=== PATIENT | female | born 1990 | race Caucasian/White ===

== ENCOUNTER → 2017-09-15 | Outpatient (CLI) | payer BC | END | disposition home or self-care (01) | LOC: C.LABSPEC 13:08 | PROVIDERS: ATTEND Obstetrics & Gynecology | DX: Z34.81 Encounter for supervision of other normal pregnancy, first trimester (principal) ==

== ENCOUNTER → 2017-09-22 | Outpatient (CLI) | payer BC ==
[2017-09-22 13:07] LABS: BASO % 0.2 %; BASO ABS # 0.02 K/uL (0-0.2); EOS % 1.2 %; EOS ABS # 0.14 K/uL (0-0.5); HEMATOCRIT 38.1 % (37-47); HEMOGLOBIN 13.2 g/dL (12.0-16.0); IG# 0.04 K/uL (0.00-0.02); LYMPH % 10.8 %; LYMPH ABS # 1.26 K/uL (1.2-3.4); MEAN CELL VOLUME 89.2 fL (80-100); MEAN CORPUSCULAR HEMOGLOBIN 30.9 pg (25-34); MEAN CORPUSCULAR HGB CONC 34.6 g/dl (32-36); MEAN PLATELET VOLUME 11.4 fL (7.4-10.4); MONO % 8.1 %; MONO ABS # 0.95 K/uL (0.11-0.59); NEUT % 79.4 %; NEUT ABS # 9.27 K/uL (1.4-6.5); PLATELET COUNT 259 K/uL (130-400); RED CELL DISTRIBUTION WIDTH CV 13.1 % (11.5-14.5); RED CELL DISTRIBUTION WIDTH SD 42.1 fL (36.4-46.3); WHITE BLOOD COUNT 11.68 K/uL (4.8-10.8)
== END | disposition home or self-care (01) ==
LOC: C.LAB1850 09:41
PROVIDERS: ATTEND Obstetrics & Gynecology
DX: Z34.81 Encounter for supervision of other normal pregnancy, first trimester (principal)

== ENCOUNTER → 2017-09-22 | Outpatient (CLI) | payer BC | END | disposition home or self-care (01) | LOC: C.PAPS 13:26 | PROVIDERS: ATTEND Obstetrics & Gynecology | DX: Z34.81 Encounter for supervision of other normal pregnancy, first trimester (principal) ==

== ENCOUNTER 2018-05-04 23:33 | Inpatient (IN) ==
[2018-05-04] MEDS ORDERED: LACTATED RINGER'S 1,000 ML IV SCH (23:45)
[2018-05-04] MEDS ORDERED: LACTATED RINGER'S 1,000 ML IV PRN (23:53)
[2018-05-04] MEDS ORDERED: OXYTOCIN 30 UNITS/500 ML BAG IV PRN (23:53)
[2018-05-05 00:13] LABS: Hematocrit (blood only) 36.9 % (37-47); Hemoglobin 12.7 g/dL (12.0-16.0); Mean Corpuscular Volume 89.6 fL (80-100); Mean Platelet Volume 11.5 fL (7.4-10.4); Platelet Count 227 K/uL (130-400); RDW Coefficient of Variation 14.5 % (11.5-14.5); RDW Standard Deviation 47.2 fL (36.4-46.3); Red Blood Count 4.12 M/uL (4.2-5.4); White Blood Count 10.69 K/uL (4.8-10.8)
--- NOTE | 2018-05-05 00:13 | History & Physical Report ---
Date of Service May 05, 2018 Assessment & Plan (1) 39 weeks gestation of : 28yo @ 39 3 in spontaneous labor Admit to L&D, IV fluids, EFM/toco. OK for epidural when she desires. History of Present Illness Chief Complaint: labor Primary Care Provider: Jonathan Jj MD 28yo @ 39 3/7 presents to L&D with regular ctx every 3-4 minutes. Has felt like they have increased throughout the day today. No leaking of fluid, no vaginal bleeding. + movement. is complicated by maternal Igfjt-Qqcabkvkm-Lvhgz syndrome, had ablative procedure, and takes Metoprolol 25mg daily for this. She saw anesthesiology in consultation for this history 03/28/18. Additionally, patient has history of generalized anxiety disorder, takes paxil. Due to paxil use, had echo performed 01/25/19, this showed normal structure. There was a notation of mild constriction of the ductal arch. She was cleared for delivery at [facility]. She was to have a repeat echo performed 4-6w after the initial echo, but was unable to make this appointment due to snow. She is Rh negative, declined Rhogam due to FOB O negative - no documentation available as such. Allergies Allergy/AdvReac Type Severity Reaction Status Date / Time azithromycin [From Zithromax] Allergy Rash Verified 05/05/18 00:13 cefprozil [From Cefzil] Allergy Rash Verified 05/05/18 00:13 clindamycin Allergy Rash Verified 05/05/18 00:13 Iodinated Contrast- Oral and Allergy Rash Verified 05/05/18 00:13 IV Dye spironolactone Allergy Rash Verified 05/05/18 00:13 Sulfa (Sulfonamide Allergy Rash Verified 05/05/18 00:13 Antibiotics) Home Medications Home Medications Medication Instructions Recorded Confirmed Type 1 tab PO DAILY 05/05/18 05/05/18 History metoprolol tartrate 25 mg PO DAILY 05/05/18 05/05/18 History paroxetine HCl 10 mg PO DAILY 05/05/18 05/05/18 History Patient History Medical History ASCUS (atypical squamous cells of undetermined significance) on gynecologic Papanicolaou smear complicating , antepartum Endometriosis Generalized anxiety disorder Glytf-Zodxwlmbr-Dxnca (WPW) pattern Surgical History History of cardiac radiofrequency ablation Social History Preferred Language: Kazakh Communication Ability: Effective Beliefs That Will Affect Care: None marital status: Current Living Situation: Spouse Other Information That Helps Us Care for You: No Feels Safe at Home: Yes Smoking Status: Never smoker Hx Alcohol Use: No Hx Substance Use: No Physical Exam Vital Signs (Past 24 Hours): Last Vital Signs Temp 36.6 C 05/04/18 23:44 Pulse 66 05/04/18 23:46 Resp 20 05/04/18 23:44 BP 118/71 05/04/18 23:46 Physical Exam: Gen: AAO x3 NAD CV: RRR L: CTA Abd: soft, gravid Ext: no edema SVE: 6/100 per RN FHT Cat 1, [place] Q 3
[2018-05-05] MEDS ORDERED: BUPIVACAINE 0.25% 30 ML VIAL ONE (00:21)
[2018-05-05] MEDS ORDERED: fentaNYL 2MCG/ML ROPIV 1.25MG/ML 100 ML BAG EPI ONE (00:22)
[2018-05-05] MEDS ORDERED: ePHEDrine sulfate 50 MG/ML AMP ONE (00:22)
[2018-05-05] MEDS ORDERED: fentaNYL citrate 100 MCG/2 ML VIAL ONE (00:22)
[2018-05-05 00:37] LABS: Mean Corpuscular Hgb Conc 34.4 g/dL (32-36)
--- NOTE | 2018-05-05 01:32 | Anesthesiology Consultation ---
Date of Service May 05, 2018 Assessment & Plan Chart Review Chart Review: Acceptable Risk for Labor Epidural Consults Requested none ASA [id number] Proposed Anesthesia Anesthesia Type: CSE Risk / Benefits Reviewed With: PT / POA / Parent / Guardian, Accepts Plan and Informed Consent Obtained History Height/Weight Height: 5 ft 6 in Weight: 70.307 kg Allergies Allergy/AdvReac Type Severity Reaction Status Date / Time azithromycin [From Zithromax] Allergy Rash Verified 05/05/18 00:13 cefprozil [From Cefzil] Allergy Rash Verified 05/05/18 00:13 clindamycin Allergy Rash Verified 05/05/18 00:13 Iodinated Contrast- Oral and Allergy Rash Verified 05/05/18 00:13 IV Dye spironolactone Allergy Rash Verified 05/05/18 00:13 Sulfa (Sulfonamide Allergy Rash Verified 05/05/18 00:13 Antibiotics) Medications Home Medications Medication Instructions Recorded Confirmed Last Taken 1 tab PO DAILY 05/05/18 05/05/18 1 Day Ago ~05/04/18 metoprolol tartrate 25 mg PO DAILY 05/05/18 05/05/18 1 Day Ago ~05/04/18 paroxetine HCl 10 mg PO DAILY 05/05/18 05/05/18 1 Day Ago ~05/04/18 Active Medications Generic Name Dose Route Start Last Admin Trade Name Freq PRN Reason Stop Dose Admin Lactated Ringer's 1,000 mls @ 999 mls/hr 05/04/18 23:53 05/05/18 01:00 Lr IV 06/03/18 23:52 125 mls/hr .Q1H1M PRN Infusion (Pre-Anesthesia) Past Medical History Medical History ASCUS (atypical squamous cells of undetermined significance) on gynecologic Papanicolaou smear complicating , antepartum Endometriosis Generalized anxiety disorder Wlevl-Zeufvuhut-Yoyqp (WPW) pattern Past Surgical History Surgical History History of cardiac radiofrequency ablation Social History Smoking Status: Never smoker Do You Dip or Chew Tobacco: No Hx Alcohol Use: No Hx Substance Use: No Physical Exam Vital Signs Last Vital Signs Temp 36.6 C 05/04/18 23:44 Pulse 70 05/05/18 01:28 Resp 20 05/05/18 01:15 BP 116/77 05/05/18 01:28 Pulse Ox 100 05/05/18 01:28 Testing Laboratory Results 05/05/18 00:02
[2018-05-05] MEDS ORDERED: fentaNYL 2MCG/ML ROPIV 1.25MG/ML 100 ML BAG EPI PRN (01:35)
[2018-05-05] MEDS ORDERED: NALOXONE HCL 0.4 MG/1 ML VIAL/CARP IV PRN (01:35)
[2018-05-05] MEDS ORDERED: LACTATED RINGER'S 1,000 ML IV PRN (01:35)
[2018-05-05] MEDS ORDERED: ePHEDrine sulfate 50 MG/ML AMP IV PRN (01:35)
[2018-05-05] MEDS ORDERED: NALOXONE HCL 1 MG in SODIUM CHLORIDE 0.9% 1000ML 1,000 ML IV PRN (01:35)
[2018-05-05] MEDS ORDERED: NALBUPHINE HCL INJ 10 MG/ML AMP IV PRN (01:35)
[2018-05-05] MEDS ORDERED: DiphenhydrAMINE HCL 50 MG/ML VIAL IV PRN (01:35)
[2018-05-05] MEDS ORDERED: OXYTOCIN 30 UNITS/500 ML BAG IV PRN (02:11)
[2018-05-05] MEDS ORDERED: BISACODYL 10 MG SUPP PR PRN (02:11)
[2018-05-05] MEDS ORDERED: OXYCODONE/ACETAMINOPHEN 5mg/325mg TAB PO PRN (02:11)
[2018-05-05] MEDS ORDERED: SUPERCREAM 0.870% 15 GM JAR EXT PRN (02:11)
[2018-05-05] MEDS ORDERED: HYDROCORTISONE ACETATE 25 MG SUPP PR PRN (02:11)
[2018-05-05] MEDS ORDERED: DIPHTHERIA/TETANUS/PERTUSSIS 0.5 ML SYR/VIAL IM ONE (02:11)
[2018-05-05] MEDS ORDERED: BENZOCAINE 20% AER SPR 82.5 GM CAN EXT PRN (02:11)
[2018-05-05] MEDS ORDERED: ACETAMINOPHEN 325 MG TAB PO PRN (02:11)
--- NOTE | 2018-05-05 02:14 | Procedure Note ---
Vaginal Delivery Summary Date of Service May 05, 2018 Vaginal Delivery Summary Predelivery diagnoses: 28yo @ 39 05/05, spontaneous labor. Maternal WPW syndrome, s/p ablative procedure. Maternal paxil use, echo with narrow ductal arch. Rh negative status. Generalized anxiety disorder. Cervical dysplasia. Postdelivery diagnoses: same Procedure: spontaneous vaginal delivery Surgeon: Dr Spann Complications: none Findings: viable female , Apgars 8/9. Weight pending - please see nursery records. EBL: 300ml Procedure: Patient presented in spontaneous labor, recieved epidural, progressed to complete and had spontaneous rupture of membranes for clear fluid. She then began to push. She spontaneously vaginally delivered a viable female from the cephalic presentation. The head delivered in KAILYN position, followed by anterior shoulder, then posterior shoulder, then body. The baby was placed on mother's abdomen, and a spontaneous cry was heard. The cord was doubly clamped and cut, and cord blood was obtained. The placenta delivered spontaneously intact with a 3-vessel cord. Pitocin was given. The uterus/vagina were swept of clots and debris and the uterus became firm. The cervix, vagina, and perineum were inspected and no lacerations were noted. Excellent hemostasis was observed. Sponge/instrument counts were correct x 2 at the conclusion of delivery. The mother and baby recovered in the room in stable and good condition.
--- NOTE | 2018-05-05 06:18 | Anesthesia Procedure Note ---
Date of Service May 05, 2018 Anesthesia Post Epidural Note Vital Signs Vital Signs: Temp Pulse Resp BP Pulse Ox 37.0 C 66 18 111/66 98 05/05/18 05:35 05/05/18 05:35 05/05/18 05:35 05/05/18 05:35 05/05/18 01:48 Notes Mental Status: alert / awake / arousable and participated in evaluation Nausea / Vomiting: adequately controlled Pain: adequately controlled Airway Patency, RR, SpO2: stable & adequate BP & HR: stable & adequate Hydration State: stable & adequate Neuraxial Anesthesia: was administered and sensory block is resolving Anesthetic Complications: no major complications apparent and Pt Satisfied with anesthetic care Epidural: Removed without complications and With tip intact
[2018-05-05] MEDS ORDERED: PRENATAL VITAMIN 1 TAB PO SCH (09:00)
[2018-05-05] MEDS: DOCUSATE SODIUM 100 MG CAP PO SCH ×2 (09:05→21:04)
[2018-05-05] MEDS: PARoxetine HCl 20 MG TAB PO SCH (09:05)
[2018-05-05] MEDS: PRENATAL VITAMIN 1 TAB PO SCH (09:05)
[2018-05-05] MEDS: IBUPROFEN 600 MG TAB PO PRN ×2 (12:51→19:21)
[2018-05-05] MEDS ORDERED: METOPROLOL TARTRATE 25 MG TAB PO SCH (21:00)
--- NOTE | 2018-05-06 07:34 | Obstetrical Progress Note ---
Date of Service May 06, 2018 Assessment & Plan (1) Status post vaginal delivery: Patient is a 28 year old PPD 1 s/p -Vital signs WNL bp 106/66 T36.8, -no si/sx of anemia. -Pt is doing clinically well -Continue to encourage ambulation as tolerated, Monitor and control pain with m otrin prn, Continue diet as tolerated. -Continue to support and encourage breast feeding -Counseled patient on discharge instructions including Vaginal bleeding, fevers, followup, lifting restrictions, breast feeding, vitamins, and nothing in the vagina for 6 weeks. Pt was agreeable -Plan for d/c today Supervising Physician Co-Signing Physician Notes Patient seen and agree with the above assessment and plan Subjective Pt doing wiell this morning sitting up with baby in her arms and dad sitting across the room. Patient is tolerating her diet, ambulating, passing gas, voiding, and stooling appropriately. Reports moderate decreasing lochia. Denies H/A, chest pain, palpitations and uti syx. No concerns at this time pain is well controlled. Requesting D/C today as there was a in the family Physical Exam Vital Signs (Past 24 Hours): Last Vital Signs Temp 36.8 C 05/05/18 23:30 Pulse 55 L 05/05/18 23:30 Resp 18 05/05/18 23:30 BP 106/66 05/05/18 23:30 Pulse Ox 98 05/05/18 23:30 Constitutional: WD/WN, vitals as above Eyes: normal visual sullivan by confrontation Respiratory: normal respiratory effort, lungs clear to auscultation Cardiovascular: RRR, no murmur, no edema Extremities: no calf tenderness Gastrointestinal (Abdomen): normal bowel sounds, soft, nontender, no hepatosplenomegaly (Uterus firm and 1 finger below umbilicus) Skin: no rashes, warm and dry Results & Data Medications Administered Current Inpatient Medications Acetaminophen (Tylenol) 650 mg PO Q6H PRN PRN Reason: Pain/HERNÁNDEZ/Fever Stop: 06/04/18 02:10 Last Admin: 05/05/18 23:48 Dose: 650 mg Documented by: Benzocaine (Dermoplast Pain Relieving Farina) 1 appln EXT PRN PRN PRN Reason: Perineal Discomfort Stop: 06/04/18 02:10 Bisacodyl (Dulcolax) 5 mg PO 1999 ON LICENSE OF [facility] Stop: 05/06/18 20:01 Bisacodyl (Dulcolax) 10 mg CO DAILY PRN PRN Reason: No BM on 2nd post- day Stop: 06/04/18 02:10 Cocaine HCl (Supercream 0.870%) 1 gm EXT BID PRN PRN Reason: Hemorrhoidal Inflammation Stop: 05/19/18 02:10 Docusate Sodium (Colace) 100 mg PO BID ON LICENSE OF [facility] Stop: 06/04/18 08:59 Last Admin: 05/05/18 21:04 Dose: 100 mg Documented by: Hydrocortisone (Anusol Hc) 25 mg CO BID PRN PRN Reason: Hemorrhoidal Inflammation Stop: 06/04/18 02:10 Oxytocin (Pitocin) 30 units in 500 mls @ 333.333 mls/hr IV .Q1H30M PRN; Protocol PRN Reason: BLEEDING CONTROL Stop: 06/04/18 02:10 Last Titration: 05/05/18 05:17 Dose: Infused Documented by: Ibuprofen (Motrin) 600 mg PO Q4H PRN PRN Reason: Pain/HERNÁNDEZ/Cramping/Fever Stop: 06/04/18 01:56 Last Admin: 05/05/18 19:21 Dose: 600 mg Documented by: Metoprolol Tartrate (Lopressor) 25 mg PO HS ON LICENSE OF [facility] Stop: 06/04/18 20:59 Last Admin: 05/05/18 21:04 Dose: 25 mg Documented by: Oxycodone/Acetaminophen (Percocet 5mg/325mg) 1 tab PO Q4H PRN PRN Reason: Pain not relieved by... Stop: 05/19/18 02:10 Paroxetine HCl (Paxil) 10 mg PO DAILY ON LICENSE OF [facility] Stop: 06/04/18 08:59 Last Admin: 05/05/18 09:05 Dose: 10 mg Documented by: Prenat Multivit/Steele/Iron/Folic Ac ( Vitamin) 1 tab PO DAILY ON LICENSE OF [facility] Stop: 06/04/18 08:59 Last Admin: 05/05/18 09:05 Dose: 1 tab Documented by: Resident Activity Tracking Resident Involvement: Resident Care Provided Care Provided: Adult [facility] Medicine
[2018-05-06 07:38] LABS: Hematocrit (blood only) 38.1 % (37-47); Hemoglobin 12.7 g/dL (12.0-16.0); Mean Corpuscular Hgb Conc 33.3 g/dL (32-36); Mean Corpuscular Volume 90.7 fL (80-100); Mean Platelet Volume 11.2 fL (7.4-10.4); Platelet Count 190 K/uL (130-400); RDW Coefficient of Variation 14.7 % (11.5-14.5); RDW Standard Deviation 48.4 fL (36.4-46.3); White Blood Count 12.34 K/uL (4.8-10.8)
[2018-05-06] MEDS: PRENATAL VITAMIN 1 TAB PO SCH (08:16)
[2018-05-06] MEDS: DOCUSATE SODIUM 100 MG CAP PO SCH (08:16)
[2018-05-06] MEDS: IBUPROFEN 600 MG TAB PO PRN (08:16)
[2018-05-06] MEDS: PARoxetine HCl 20 MG TAB PO SCH (08:19)
[2018-05-06] MEDS ORDERED: BISACODYL 5 MG TABEC PO SCH (20:00)
== END 2018-05-06 09:30 | disposition home or self-care (01) | DRG 807 ==
LOC: OPB 23:33 → 4S1 23:34 → 4S2 05-05 05:23

== ENCOUNTER 2021-02-01 21:20 | Inpatient (IN) ==
[2021-02-01] MEDS ORDERED: OXYTOCIN 30 UNITS/500 ML BAG IV PRN (22:03)
[2021-02-01] MEDS: LACTATED RINGER'S 1,000 ML IV PRN ×2 (22:07→23:40)
[2021-02-01] MEDS ORDERED: ePHEDrine sulfate 50 MG/ML AMP ONE (22:17)
[2021-02-01] MEDS ORDERED: BUPIVACAINE 0.25% 30 ML VIAL ONE (22:17)
[2021-02-01] MEDS ORDERED: SODIUM CHLORIDE 0.9% INJ 10 ML VIAL ONE (22:17)
[2021-02-01] MEDS ORDERED: fentaNYL citrate 100 MCG/2 ML VIAL ONE (22:18)
[2021-02-01] MEDS ORDERED: fentaNYL 2MCG/ML ROPIVACAINE 1.25MG/ML 100 ML BAG EPI ONE (22:18)
[2021-02-01 22:25] LABS: Hematocrit (blood only) 37.5 % (37-47); Hemoglobin 12.8 g/dL (12.0-16.0); Mean Corpuscular Hemoglobin 31.9 pg (25-34); Mean Corpuscular Volume 93.5 fL (80-100); Platelet Count 206 K/uL (130-400); RDW Coefficient of Variation 13.4 % (11.5-14.5); RDW Standard Deviation 45.6 fL (36.4-46.3); Red Blood Count 4.01 M/uL (4.2-5.4); White Blood Count 9.45 K/uL (4.8-10.8)
[2021-02-01 22:27] LABS: Mean Corpuscular Hgb Conc 34.1 g/dL (32-36)
[2021-02-01] MEDS ORDERED: NALOXONE HCL 1 MG in SODIUM CHLORIDE 0.9% 1000ML 1,000 ML IV PRN (22:48)
[2021-02-01] MEDS ORDERED: NALBUPHINE HCL INJ 10 MG/ML AMP IV PRN (22:48)
[2021-02-01] MEDS ORDERED: NALOXONE HCL 0.4 MG/1 ML VIAL/CARP IV PRN (22:48)
[2021-02-01] MEDS ORDERED: ePHEDrine sulfate 50 MG/ML AMP IV PRN (22:48)
[2021-02-01] MEDS ORDERED: fentaNYL 2MCG/ML ROPIVACAINE 1.25MG/ML 100 ML BAG EPI PRN (22:48)
[2021-02-01] MEDS ORDERED: diphenhydrAMINE 50 MG/ML VIAL IV PRN (22:48)
[2021-02-01] MEDS ORDERED: ONDANSETRON INJ 2 MG/ML 2 ML VIAL IV PRN (22:48)
--- NOTE | 2021-02-01 22:53 | Anesthesiology Consultation ---
Date of Service February 01, 2021 Assessment & Plan Chart Review Chart Review: Patient NOT seen in Pre Admission Testing and Acceptable Risk for Labor Epidural Consults Requested none ASA ASA3 Proposed Anesthesia Anesthesia Type: Labor Epidural and CSE Risk / Benefits Reviewed With: PT / POA / Parent / Guardian, Accepts Plan and Informed Consent Obtained History Height/Weight Height: 5 ft 6 in Weight: 86.183 kg Allergies Allergy/AdvReac Type Severity Reaction Status Date / Time azithromycin [From Zithromax] Allergy Rash Verified 02/01/21 21:30 cefprozil [From Cefzil] Allergy Rash Verified 02/01/21 21:30 clindamycin Allergy Rash Verified 02/01/21 21:30 Iodinated Contrast Media Allergy Rash Verified 02/01/21 21:30 [Iodinated Contrast- Oral and IV Dye] spironolactone Allergy Rash Verified 02/01/21 21:30 Sulfa (Sulfonamide Allergy Rash Verified 02/01/21 21:30 Antibiotics) Bactrim TABS Allergy Rash Uncoded 02/01/21 21:30 Medications Home Medications Medication Instructions Recorded Confirmed Last Taken prenat.vits,tru,fsx-skaj-ulfzj 1 tab PO DAILY #90 tab 09/23/18 01/31/21 Unknown lorazepam 0.5 mg tablet 0.5 mg PO DAILY PRN #30 tab 12/08/18 01/31/21 Unknown paroxetine HCl 30 mg tablet 30 mg PO DAILY #90 tab 03/25/20 01/31/21 Unknown metoprolol tartrate 25 mg tablet 25 mg PO HS #90 tab 09/26/20 01/31/21 Unknown doxylamine succinate [Unisom PO 12/25/20 01/31/21 Unknown (doxylamine)] vitamin B complex PO 12/25/20 01/31/21 Unknown calcium carbonate [Tums] PO 01/10/21 01/31/21 Unknown ferrous sulfate PO 01/10/21 01/31/21 Unknown Active Medications Generic Name Dose Route Start Last Admin Trade Name Freq PRN Reason Stop Dose Admin Lactated Ringer's 1,000 mls @ 125 mls/hr 02/01/21 22:03 02/01/21 22:37 Lr IV 02/03/21 22:02 125 mls/hr .Q8H PRN Infusion L&D Protocol Protocol NPO Date Last Intake of Fluids: 02/01/21 Time Last Intake of Fluids: 17:30 Date Last Intake of Solids: 02/01/21 Time Last Intake of Solids: 22:00 Past Medical History Medical History (Updated 12/25/20 @ 11:22 by Rose Marie Richards) Anxiety ASCUS (atypical squamous cells of undetermined significance) on gynecologic Papanicolaou smear complicating , antepartum Endometriosis Generalized anxiety disorder History of chicken pox Human papilloma virus Shingles Epczj-Iyvamypom-Xnkgu (WPW) pattern Exercise / Class Metabolic Activity II 4-5 Yardwork/Stairs/Walk up hill Past Family History Family History Father Coronary heart disease Grandfather Colorectal cancer Grandmother Colorectal cancer Sister Scoliosis Denies family history of Ovarian cancer Breast cancer Past Surgical History Surgical History (Updated 12/25/20 @ 11:18 by Rose Marie Richards) History of cardiac radiofrequency ablation History of colposcopy History of oral surgery S/P loop electrosurgical excision procedure Past Anesthesia History No Hx of Anesthesia Complications and No Family Hx of Anesthesia Complications History of PONV No Hx of PONV and No Hx of Motion Sickness Social History Smoking Status: Never smoker Hx Alcohol Use: No Hx Substance Use: No substance use type: does not use Review of Systems no chest pain or sob Physical Exam Vital Signs Last Vital Signs Temp 36.7 C 02/01/21 21:38 Pulse 93 H 02/01/21 21:38 Resp 18 02/01/21 21:38 BP 119/74 02/01/21 21:38 SpO2 98 ENMT Mouth: no TMJ abnormality Thyromental Distance: > or= 3.5 Finger Breadths Mallampati Class: II Neck normal visual inspection Respiratory normal respiratory effort Auscultation: lungs clear to auscultation bilaterally Cardiovascular Rate/Rhythm: regular rate and regular rhythm Musculoskeletal Spine: normal cervical ROM Neurologic moves all extremities Psychiatric Orientation: alert and oriented x 3 Testing Laboratory Results 02/01/21 22:15 02/01/21 22:11 POC Glucose 78
--- NOTE | 2021-02-02 01:31 | Delivery Summary ---
Vaginal Delivery Summary Date of Service February 02, 2021 Vaginal Delivery Summary DIAGNOSES: 1. Coleman intrauterine at 40w3d gestation. 2. Spontaneous onset of labor. 3. Group B Streptococcus neg. PROCEDURE: Spontaneous vaginal delivery without laceration. SURGEON: Sheila Mina MD. MANAGER CLIENT SERVICE: None. ESTIMATED BLOOD LOSS: 250 mL. COMPLICATIONS: None. PLACENTA: Spontaneous and intact with a 3-vessel cord. DISPOSITION: Stable to labor and delivery. DESCRIPTION: The patient pushed well and brought the head to in DOA position. The infant's head was allowed to deliver with contraction force and no further active pushing, with the perineum protected during this time. There was no nuchal cord. The right shoulder was anterior. The shoulders and body delivered without any difficulty, and the infant was placed on the maternal abdomen. It was vigorous and moving all extremities, and making respiratory efforts. The cord was doubly clamped by the MD and then cut by the FOB. The placenta delivered spontaneously and was noted to be intact and with a 3VC. The cervix, vagina and perineum were examined and were found to be without defect requiring repair. The fundus was firm and lochia minimal immediately after delivery. [facility] Vaginal Delivery Charge Vaginal Delivery Codes: 18003 global code for the antepartum, delivery, and post-
[2021-02-02] MEDS ORDERED: ACETAMINOPHEN 325 MG TAB PO PRN (01:43)
[2021-02-02] MEDS ORDERED: BENZOCAINE 20% AER SPR 82.5 GM CAN EXT PRN (01:43)
[2021-02-02] MEDS ORDERED: HYDROCORTISONE ACETATE 25 MG SUPP PR PRN (01:43)
[2021-02-02] MEDS ORDERED: ACETAMINOPHEN W/CODEINE #3 1 TAB PO PRN (01:43)
[2021-02-02] MEDS ORDERED: DIPHTHERIA/TETANUS/PERTUSSIS 0.5 ML SYR/VIAL IM ONE (01:43)
[2021-02-02] MEDS ORDERED: SUPERCREAM 0.870% 15 GM JAR EXT PRN (01:43)
[2021-02-02] MEDS: IBUPROFEN 600 MG TAB PO PRN ×5 (03:42→23:33)
[2021-02-02] MEDS: PRENATAL VITAMIN 1 TAB PO SCH (08:24)
[2021-02-02] MEDS: DOCUSATE SODIUM 100 MG CAP PO SCH ×2 (08:24→20:56)
[2021-02-02] MEDS: PARoxetine HCL 10 MG TAB PO SCH (08:25)
--- NOTE | 2021-02-02 09:11 | Anesthesia Procedure Note ---
Date of Service February 02, 2021 Anesthesia Post Epidural Note Vital Signs Vital Signs: Temp Pulse Resp BP Pulse Ox 36.8 C 71 18 111/76 99 02/02/21 07:30 02/02/21 07:30 02/02/21 07:30 02/02/21 07:30 02/02/21 07:30 Pain Intensity Bilateral Abdomen: Pain Intensity: 1 Notes Mental Status: alert / awake / arousable Nausea / Vomiting: adequately controlled Pain: adequately controlled Airway Patency, RR, SpO2: stable & adequate BP & HR: stable & adequate Hydration State: stable & adequate Neuraxial Anesthesia: was administered and sensory block is resolving Anesthetic Complications: no major complications apparent Epidural: Removed without complications and With tip intact
[2021-02-02] MEDS ORDERED: METOPROLOL TARTRATE 25 MG TAB PO SCH (21:00)
[2021-02-03] MEDS: IBUPROFEN 600 MG TAB PO PRN (04:59)
--- NOTE | 2021-02-03 05:59 | Hospitalist Progress Note ---
Date of Service February 03, 2021 Assessment & Plan Admission and Anticipated Discharge Date Admission Date: February 01, 2021 Results & Data Results & Data ([facility]) Vital Signs (Past 12 Hours) Vital Signs Temp Pulse Resp BP 02/02/21 23:30 37.1 C 80 18 112/68 02/02/21 19:35 37.1 C 82 18 110/70
[2021-02-03 06:21] LABS: Hematocrit (blood only) 34.2 % (37-47); Hemoglobin 11.5 g/dL (12.0-16.0); Mean Corpuscular Hemoglobin 31.8 pg (25-34); Mean Corpuscular Hgb Conc 33.6 g/dL (32-36); Mean Corpuscular Volume 94.5 fL (80-100); Platelet Count 192 K/uL (130-400); RDW Coefficient of Variation 13.7 % (11.5-14.5); RDW Standard Deviation 47.5 fL (36.4-46.3); Red Blood Count 3.62 M/uL (4.2-5.4); White Blood Count 10.52 K/uL (4.8-10.8)
--- NOTE | 2021-02-03 06:36 | Obstetrical Progress Note ---
Date of Service February 03, 2021 Assessment & Plan (1) Encounter for care and examination after delivery: Plan: 30yo PPD 1 s/p LTCS) at 40 weeks -Continue routine care -Vitals reviewed- HDS, afebrile -GBS -Encourage ambulation, regular diet -Pain control with ibuprofen, acetaminophen PRN -Encourage -Hgb 11.5 -F/u in 6 weeks with OB Admission and Anticipated Discharge Date Admission Date: February 01, 2021 Supervising Physician Co-Signing Physician Notes Resident Physician Supervision Note: I interviewed and examined the patient. Discussed with Dr. Queen and agree with findings and plan as documented in the note. Any exceptions or clarifications are listed here: [ ] Documented By: Sheila Mina MD, FACOG Subjective Ambulation: ambulating normally Voiding: no voiding problems Passing Gas: Yes BM: yes Diet Tolerance: regular diet Lochia:: Small Feeding Type:: breast feeding Current Pain Level(1-10): 7, mostly cramping Review of Systems Review of Systems: Denies fevers/chills. Denies dyspnea, cough. Denies chest pain. Denies breast pain or discharge. Denies dysuria. Denies headache. Denies back pain. Physical Exam Physical Exam: General: Alert, oriented, no acute distress Cardiac: Regular rate and rhythm, normal S1, S2. No murmurs appreciated. Respiratory: Clear to auscultation b/l with good air flow entry, symmetric chest rise and fall. No wheezes or crackles. No increased work of breathing or acces domonique muscle use Abdomen: Soft, nontender, nondistended. Fundus firm and palpable at 1 cm below umbilicus. No guarding or rebound. Skin: No rashes or lesions Extremities: Warm, dry, well-perfused with capillary refill <2s b/l. No lower extremity edema, erythema or swelling. Negative Ainsley's sign b/l. Results & Data ([facility]) Vital Signs (Past 12 Hours) Vital Signs Temp Pulse Resp BP 02/02/21 23:30 37.1 C 80 18 112/68 02/02/21 19:35 37.1 C 82 18 110/70 Resident Activity Tracking Resident Involvement: Resident Care Provided Care Provided: OB Delivery
[2021-02-03] MEDS: PRENATAL VITAMIN 1 TAB PO SCH (07:56)
[2021-02-03] MEDS: DOCUSATE SODIUM 100 MG CAP PO SCH (07:56)
[2021-02-03] MEDS: PARoxetine HCL 10 MG TAB PO SCH (07:57)
== END 2021-02-03 12:45 | disposition home or self-care (01) | DRG 807 ==
LOC: OPB 21:20 → 4S1 21:21 → 4S2 02-02 04:07